=== PATIENT | male | born 1970 | race African-American/Black ===

== ENCOUNTER 2017-04-27 10:06 | Emergency (ER) | payer OTHER ==
[2017-04-27] MEDS: KETOROLAC 60 MG INJ IM (13:14)
== END 2017-04-27 14:05 | disposition home or self-care (01) ==
LOC: FTE 10:06
DX: M54.5 Low back pain (principal)
CPT/HCPCS: 72100; 72220; 96372; 99284-25

== ENCOUNTER 2018-01-07 16:29 | Emergency (ER) | payer OTHER | END 2018-01-07 19:07 | disposition home or self-care (01) | LOC: FTE 16:29 | DX: J40 Bronchitis, not specified as acute or chronic (principal); H10.9 Unspecified conjunctivitis | CPT/HCPCS: 99283 ==

== ENCOUNTER 2018-07-06 17:09 | Inpatient (IN) | payer OTHER ==
[2018-07-06 17:42] LABS: ADD MAN DIFF? NO
[2018-07-06] MEDS: ASPIRIN 81 MG TAB PO (17:42)
[2018-07-06 17:43] LABS: WHITE BLOOD COUNT 6.4 10^3/ul (4.8-10.8)
[2018-07-06 17:43] LABS: BASOPHILS % 0.6 % (0.0-2.0); EOSINOPHILS # 0.3 10^3/ul (0.0-0.5); EOSINOPHILS % 4.8 % (0.0-7.0); HEMATOCRIT 43.5 % (42.0-52.0); HEMOGLOBIN 14.1 g/dl (14.0-18.0); LYMPHOCYTES # 1.8 10^3/ul (0.8-2.9); LYMPHOCYTES % 28.1 % (15.0-51.0); MEAN CORPUSCULAR HEMOGLOBIN 29.6 pg (29.0-33.0); MEAN CORPUSCULAR HGB CONC 32.4 g/dl (32.0-37.0); MEAN CORPUSCULAR VOLUME 91.4 fl (82.0-101.0); MEAN PLATELET VOLUME 10.7 fl (7.4-10.4); MONOCYTE # 0.6 10^3/ul (0.3-0.9); MONOCYTES % 9.2 % (0.0-11.0); NEUTROPHIL # 3.6 10^3/ul (1.6-7.5); PLATELET COUNT 196 10^3/UL (140-415); RED BLOOD COUNT 4.76 10^6/ul (4.70-6.10); RED CELL DISTRIBUTION WIDTH 12.6 % (11.5-14.5)
[2018-07-06 18:16] LABS: ANION GAP 8 (5-13); BLOOD UREA NITROGEN 18 mg/dl (7-20); CALCIUM 9.5 mg/dl (8.4-10.2); CARBON DIOXIDE 30 mmol/L (21-31); CHLORIDE 103 mmol/L (97-110); CREATININE 1.57 mg/dl (0.61-1.24); Estimated GFR 57 mL/min (>60); GLUCOSE 90 mg/dl (70-220); POTASSIUM 4.1 mmol/L (3.5-5.1); SODIUM 141 mmol/L (135-144)
[2018-07-06 18:28] LABS: TROPONIN-I < 0.012 ng/ml (0.000-0.120)
[2018-07-06] MEDS ORDERED: ONDANSETRON 4 MG INJ IV ×2 (21:30→22:30)
[2018-07-06] MEDS ORDERED: ACETAMINOPHEN 325 MG TAB PO ×2 (21:30→22:30)
[2018-07-06] MEDS ORDERED: morphine 2 MG INJ IV (22:30)
[2018-07-06] MEDS: ATORVASTATIN 20 MG TAB PO (22:42)
[2018-07-06 23:23] LABS: TROPONIN-I < 0.012 ng/ml (0.000-0.120)
[2018-07-07 08:00] LABS: CK INDEX 0.7; CK-MB 1.21 ng/ml (0.0-2.4); CREATINE KINASE 171 IU/L (23-200); TROPONIN-I < 0.012 ng/ml (0.000-0.120)
[2018-07-07] MEDS: ASPIRIN 81 MG TAB PO (09:30)
[2018-07-07] MEDS: REGADENOSON 0.4 MG/5 ML SYG (14:35)
== END 2018-07-07 17:51 | disposition home or self-care (01) | DRG 313 ==
LOC: TEL 21:45 → E/R 17:09 → TEL 21:03
DX: R07.9 Chest pain, unspecified (principal); R00.2 Palpitations
CPT/HCPCS: 36415; 71045; 78452; 80048; 82550; 82553; 84484; 85025; 93005; 93017; 93306; 99285-25

== ENCOUNTER 2018-08-27 14:19 | Emergency (ER) | payer OTHER ==
[2018-08-27 17:33] LABS: ADD MAN DIFF? NO
[2018-08-27 17:36] LABS: BASOPHIL # 0.1 10^3/ul (0.0-0.1); BASOPHILS % 1.3 % (0.0-2.0); EOSINOPHILS # 0.5 10^3/ul (0.0-0.5); EOSINOPHILS % 5.9 % (0.0-7.0); HEMATOCRIT 45.3 % (42.0-52.0); HEMOGLOBIN 14.7 g/dl (14.0-18.0); LYMPHOCYTES # 2.2 10^3/ul (0.8-2.9); LYMPHOCYTES % 29.1 % (15.0-51.0); MEAN CORPUSCULAR HEMOGLOBIN 29.6 pg (29.0-33.0); MEAN CORPUSCULAR HGB CONC 32.5 g/dl (32.0-37.0); MEAN CORPUSCULAR VOLUME 91.1 fl (82.0-101.0); MEAN PLATELET VOLUME 10.5 fl (7.4-10.4); MONOCYTE # 0.6 10^3/ul (0.3-0.9); MONOCYTES % 7.2 % (0.0-11.0); NEUTROPHIL # 4.3 10^3/ul (1.6-7.5); NEUTROPHILS % 56.1 % (39.0-77.0); PLATELET COUNT 207 10^3/UL (140-415); RED BLOOD COUNT 4.97 10^6/ul (4.70-6.10); RED CELL DISTRIBUTION WIDTH 12.9 % (11.5-14.5)
[2018-08-27 17:36] LABS: WHITE BLOOD COUNT 7.6 10^3/ul (4.8-10.8)
[2018-08-27 17:55] LABS: ANION GAP 7 (5-13); BLOOD UREA NITROGEN 25 mg/dl (7-20); CALCIUM 10.8 mg/dl (8.4-10.2); CARBON DIOXIDE 32 mmol/L (21-31); CHLORIDE 104 mmol/L (97-110); CREATININE 1.69 mg/dl (0.61-1.24); Estimated GFR 53 mL/min (>60); GLUCOSE 81 mg/dl (70-220); POTASSIUM 4.5 mmol/L (3.5-5.1); SODIUM 143 mmol/L (135-144)
[2018-08-27 18:08] LABS: B-TYPE NATRIURETIC PEPTIDE 189 PG/ML (0-125); TROPONIN-I < 0.012 ng/ml (0.000-0.120)
[2018-08-27] MEDS: SOD CHLORIDE 0.9% 1,000 ML IV (20:09)
== END 2018-08-27 21:53 | disposition home or self-care (01) ==
LOC: FTE 14:19 → E/R 21:53
DX: R39.2 Extrarenal uremia (principal); R94.31 Abnormal electrocardiogram [ECG] [EKG]; Z87.891 Personal history of nicotine dependence
CPT/HCPCS: 36415; 71045; 80048; 83880; 84484; 85025; 93005; 99285-25

== ENCOUNTER 2018-11-01 15:52 | Emergency (ER) | payer OTHER | END 2018-11-01 17:39 | disposition home or self-care (01) | LOC: FTE 15:52 | DX: R21 Rash and other nonspecific skin eruption (principal) | CPT/HCPCS: 99283; Z7502 ==